=== PATIENT | female | born 1985 | race Caucasian/White ===

== ENCOUNTER 2022-08-09 07:55 | Emergency (ER) | payer OTHER ==
[2022-08-09 08:02] VITALS: BP 123/70; PULSE 102; RESP 16; TEMP 97.7; BMI 22.1
[2022-08-09] MEDS ORDERED: TETRACAINE 0.5% HCL 0.6ML DROPPER.BOTTLE OU ONE (08:11)
[2022-08-09] MEDS ORDERED: FLUORESCEIN NA 1 EA STRIP OU ONE (08:12)
[2022-08-09] MEDS ORDERED: TETRACAINE 0.5% OPHTH SOLN 2 ML BOTTLE ONE (08:13)
[2022-08-09] MEDS ORDERED: FLUORESCEIN NA 1 EA STRIP ONE (08:13)
== END 2022-08-09 08:57 | disposition home or self-care (01) ==
LOC: JER 07:55 → JERFT 07:55
DX: H10.32 Unspecified acute conjunctivitis, left eye (principal); H00.036 Abscess of eyelid left eye, unspecified eyelid
CPT/HCPCS: 99283-25

== ENCOUNTER 2023-04-23 15:21 | Observation (INO) | payer OTHER ==
[2023-04-23 16:17] LABS: BASO % 0.4 % (0-2.0); EOS % 0.6 % (0-4.5); HEMATOCRIT 31.8 % (32.4-45.2); HEMOGLOBIN 10.2 GM/dL (10.7-15.3); LYMPH % 8.9 % (8-40); MCH 23.2 pg (25.7-33.7); MCHC 32.2 g/dl (32.0-36.0); MEAN CELL VOLUME 72.2 fl (80-96); MONO % 3.1 % (3.8-10.2); PLATELET COUNT 294 10^3/uL (134-434); RBC 4.41 M/mm3 (3.60-5.2); RDW 17.1 % (11.6-15.6); WHITE BLOOD COUNT 11.2 K/mm3 (4.0-10.0)
[2023-04-23 16:21] LABS: EPI CELLS >36 /uL (0-25.1); HYALINE CASTS 3 /uL (0-3.1); PH,URINE 6.5 (5.0-8.0); URINE APPEARANCE CLOUDY; URINE BACTERIA 3166 /uL (0-1359); URINE BILIRUBIN NEGATIVE (NEGATIVE); URINE COLOR YELLOW; URINE GLUCOSE (UA) NEGATIVE (NEGATIVE); URINE KETONE TRACE (NEGATIVE); URINE LEUK ESTERASE 1+ (NEGATIVE); URINE NITRITE NEGATIVE (NEGATIVE); URINE PROTEIN 1+ (NEGATIVE); URINE RBC 24 /uL (0-23.9); URINE WBC 63 /uL (0-25.8)
[2023-04-23] MEDS ORDERED: ACETAMINOPHEN 1000 MG/100 ML BAG IVPB ONE (16:22)
[2023-04-23] MEDS ORDERED: METOCLOPRAMIDE HCL INJECTION 10 MG/2 ML VIAL IVPUSH ONE (16:22)
[2023-04-23] MEDS ORDERED: CEFTRIAXONE 1,000 MG in DEXTROSE 5%-WATER - 50 ML IVPB ONE (16:27)
[2023-04-23] MEDS ORDERED: CEFTRIAXONE 1 GM/50 ML BAG ONE (16:27)
[2023-04-23] MEDS ORDERED: ACETAMINOPHEN INJECTION 100 ML IVPB ONE (16:29)
[2023-04-23] MEDS ORDERED: METOCLOPRAMIDE HCL INJECTION 10 MG/2 ML VIAL ONE (16:29)
[2023-04-23 16:36] LABS: HCG,QUALITATIVE URINE Negative
[2023-04-23 17:08] LABS: POTASSIUM 4.3 mmol/L (3.5-5.1)
[2023-04-23 17:10] LABS: BLOOD UREA NITROGEN 11.2 mg/dL (7-18); CALCIUM 8.6 mg/dL (8.5-10.1)
[2023-04-23 17:11] LABS: ALBUMIN 3.8 g/dl (3.4-5.0)
[2023-04-23 17:14] LABS: CREATININE 0.6 mg/dL (0.55-1.3)
[2023-04-23 17:15] LABS: BILIRUBIN,TOTAL 0.4 mg/dL (0.2-1); TOT PROT 7.7 g/dl (6.4-8.2)
[2023-04-23] MEDS ORDERED: KETOROLAC TROMETHAMINE 15 MG/ML VIAL IVPUSH ONE (18:55)
[2023-04-23] MEDS ORDERED: KETOROLAC TROMETHAMINE 15 MG/ML VIAL ONE (19:00)
[2023-04-23 22:00] LABS: HEMATOCRIT 30.5 % (32.4-45.2); HEMOGLOBIN 9.7 GM/dL (10.7-15.3); MCH 23.2 pg (25.7-33.7); MCHC 31.7 g/dl (32.0-36.0); MEAN CELL VOLUME 73.3 fl (80-96); PLATELET COUNT 276 10^3/uL (134-434); RBC 4.16 M/mm3 (3.60-5.2); WHITE BLOOD COUNT 8.1 K/mm3 (4.0-10.0)
[2023-04-23] MEDS ORDERED: ONDANSETRON 4 MG/2 ML VIAL IVPUSH PRN (22:49)
[2023-04-23] MEDS ORDERED: ACETAMINOPHEN 1000 MG/100 ML BAG IVPB PRN (22:50)
[2023-04-23] MEDS: SODIUM CHLORIDE 1,000 ML IV SCH (23:28)
[2023-04-24 03:53] VITALS: BMI 22.4
[2023-04-24 08:40] LABS: BASO % 0.8 % (0-2.0); EOS % 3.2 % (0-4.5); HEMOGLOBIN 8.8 GM/dL (10.7-15.3); LYMPH % 32.4 % (8-40); MCH 23.4 pg (25.7-33.7); MCHC 32.7 g/dl (32.0-36.0); MEAN CELL VOLUME 71.6 fl (80-96); MEAN PLT VOLUME 7.8 fl (7.5-11.1); MONO % 6.4 % (3.8-10.2); NEUT % 57.2 % (42.8-82.8); PLATELET COUNT 245 10^3/uL (134-434); RBC 3.77 M/mm3 (3.60-5.2); RDW 16.8 % (11.6-15.6); WHITE BLOOD COUNT 4.9 K/mm3 (4.0-10.0)
[2023-04-24 09:00] LABS: POTASSIUM 3.8 mmol/L (3.5-5.1)
[2023-04-24 09:04] LABS: BLOOD UREA NITROGEN 11.6 mg/dL (7-18); CALCIUM 8.1 mg/dL (8.5-10.1)
[2023-04-24 09:05] LABS: ALBUMIN 3.1 g/dl (3.4-5.0); MAGNESIUM 2.1 mg/dL (1.8-2.4)
[2023-04-24 09:07] LABS: PHOSPHOROUS 3.4 mg/dL (2.5-4.9)
[2023-04-24 09:08] LABS: CREATININE 0.5 mg/dL (0.55-1.3)
[2023-04-24 09:09] LABS: BILIRUBIN,TOTAL 0.4 mg/dL (0.2-1); TOT PROT 6.4 g/dl (6.4-8.2)
[2023-04-24] MEDS: SODIUM CHLORIDE 1,000 ML IV SCH ×2 (09:15→16:58)
[2023-04-24 12:07] LABS: BASO % 1.2 % (0-2.0); EOS % 3.1 % (0-4.5); HEMATOCRIT 27.8 % (32.4-45.2); HEMOGLOBIN 8.6 GM/dL (10.7-15.3); LYMPH % 34.7 % (8-40); MCHC 31.1 g/dl (32.0-36.0); MEAN CELL VOLUME 73.9 fl (80-96); MEAN PLT VOLUME 7.7 fl (7.5-11.1); MONO % 7.4 % (3.8-10.2); NEUT % 53.6 % (42.8-82.8); PLATELET COUNT 246 10^3/uL (134-434); RBC 3.76 M/mm3 (3.60-5.2); WHITE BLOOD COUNT 4.7 K/mm3 (4.0-10.0)
[2023-04-24] MEDS ORDERED: IRON SUCROSE INJECTION 200 MG in SODIUM CHLORIDE 90 ML IVPB ONE (14:30)
[2023-04-24 15:44] VITALS: RESP 18
[2023-04-24 20:36] LABS: HEMATOCRIT 26.1 % (32.4-45.2); HEMOGLOBIN 8.3 GM/dL (10.7-15.3); MCH 22.9 pg (25.7-33.7); MCHC 31.8 g/dl (32.0-36.0); MEAN CELL VOLUME 72.1 fl (80-96); MEAN PLT VOLUME 7.6 fl (7.5-11.1); PLATELET COUNT 225 10^3/uL (134-434); RBC 3.62 M/mm3 (3.60-5.2); RDW 17.1 % (11.6-15.6); WHITE BLOOD COUNT 4.7 K/mm3 (4.0-10.0)
[2023-04-25 01:47] LABS: HEMOGLOBIN 8.7 GM/dL (10.7-15.3); MCH 23.3 pg (25.7-33.7); MCHC 32.3 g/dl (32.0-36.0); MEAN PLT VOLUME 7.8 fl (7.5-11.1); PLATELET COUNT 197 10^3/uL (134-434); RBC 3.75 M/mm3 (3.60-5.2); WHITE BLOOD COUNT 5.5 K/mm3 (4.0-10.0)
[2023-04-25] MEDS ORDERED: IRON SUCROSE INJECTION 200 MG in SODIUM CHLORIDE 90 ML IVPB ONE (09:00)
[2023-04-25 11:44] LABS: HEMATOCRIT 27.5 % (32.4-45.2); HEMOGLOBIN 8.7 GM/dL (10.7-15.3); MCH 23.1 pg (25.7-33.7); MCHC 31.5 g/dl (32.0-36.0); MEAN CELL VOLUME 73.3 fl (80-96); MEAN PLT VOLUME 8.1 fl (7.5-11.1); PLATELET COUNT 222 10^3/uL (134-434); RBC 3.76 M/mm3 (3.60-5.2); WHITE BLOOD COUNT 3.8 K/mm3 (4.0-10.0)
[2023-04-25 14:09] VITALS: BP 104/47; PULSE 71; TEMP 98.8
== END 2023-04-25 15:15 | disposition home or self-care (01) ==
LOC: JER 15:21 → JERBED 21:16 → J6S 04-24 02:56
PROVIDERS: ADMIT Internal Medicine; ATTEND Internal Medicine
PROC: 3E033GC Introduction of Other Therapeutic Substance into Peripheral Vein, Percutaneous Approach (ICD-10-PCS; principal; 2023-04-23)
PROC: 3E0333Z Introduction of Anti-inflammatory into Peripheral Vein, Percutaneous Approach (ICD-10-PCS; 2023-04-23)
PROC: 3E0337Z Introduction of Electrolytic and Water Balance Substance into Peripheral Vein, Percutaneous Approach (ICD-10-PCS; 2023-04-23)
DX: N83.201 Unspecified ovarian cyst, right side (principal); R11.2 Nausea with vomiting, unspecified; D50.9 Iron deficiency anemia, unspecified; Z29.89 Encounter for other specified prophylactic measures
CPT/HCPCS: 36415; 74177-TC; 76830-TC; 80053; 81003; 82150; 83540; 83550; 83690; 83735; 84100; 84703; 85025; 85027; 86850; 86900; 86901; 87086; 87491; 87591; 93005; 93010; 96361; 96365; 96366; 96367; 96375; 99285-25; G0378; J1756; Q9967

== ENCOUNTER 2023-11-09 08:00 | Emergency (ER) | payer OTHER ==
[2023-11-09 08:18] VITALS: BP 108/70; PULSE 84; RESP 18; TEMP 98.5; BMI 22.6
[2023-11-09] MEDS: ONDANSETRON 4 MG/2 ML VIAL IVPUSH ONE (09:30)
[2023-11-09] MEDS: MECLIZINE HCL 25 MG TABLET (FP) PO ONE (09:30)
[2023-11-09] MEDS: SODIUM CHLORIDE 1,000 ML IV STA (09:30)
[2023-11-09] MEDS ORDERED: MECLIZINE HCL 25 MG TABLET (FP) ONE (09:43)
[2023-11-09] MEDS ORDERED: ONDANSETRON 4 MG/2 ML VIAL ONE (09:43)
[2023-11-09 09:44] LABS: BASO % 0.8 % (0-2.0); HEMATOCRIT 36.1 % (32.4-45.2); HEMOGLOBIN 12.5 GM/dL (10.7-15.3); LYMPH % 20.8 % (8-40); MCHC 34.6 g/dl (32.0-36.0); MEAN CELL VOLUME 89.4 fl (80-96); MEAN PLT VOLUME 7.5 fl (7.5-11.1); MONO % 6.6 % (3.8-10.2); NEUT % 69.8 % (42.8-82.8); PLATELET COUNT 225 10^3/uL (134-434); RBC 4.04 M/mm3 (3.60-5.2); RDW 12.5 % (11.6-15.6); WHITE BLOOD COUNT 4.5 K/mm3 (4.0-10.0)
[2023-11-09 10:03] LABS: POTASSIUM 4.1 mmol/L (3.5-5.1)
[2023-11-09 10:05] LABS: ALBUMIN 3.7 g/dl (3.4-5.0); BLOOD UREA NITROGEN 12.2 mg/dL (7-18); CALCIUM 8.8 mg/dL (8.5-10.1)
[2023-11-09 10:09] LABS: BILIRUBIN,TOTAL 0.4 mg/dL (0.2-1); CREATININE 0.5 mg/dL (0.55-1.3); TOT PROT 7.2 g/dl (6.4-8.2)
== END 2023-11-09 12:18 | disposition home or self-care (01) ==
LOC: JER 08:00
PROC: 3E033GC Introduction of Other Therapeutic Substance into Peripheral Vein, Percutaneous Approach (ICD-10-PCS; principal; 2023-11-09)
PROC: 3E0337Z Introduction of Electrolytic and Water Balance Substance into Peripheral Vein, Percutaneous Approach (ICD-10-PCS; 2023-11-09)
DX: R42 Dizziness and giddiness (principal); R11.2 Nausea with vomiting, unspecified; R51.9 Headache, unspecified
CPT/HCPCS: 36415; 80053; 84703; 85025; 93005; 93010; 99284-25